=== PATIENT | female | born 1965 | race Caucasian/White ===

== ENCOUNTER → 2017-06-01 | Outpatient (CLI) | payer BC ==
--- NOTE | 2017-06-01 17:01 | RADIOLOGY REPORT PS360 ---
US PELVIS-TRANSVAGINAL ONLY HISTORY: Dysfunctional uterine bleeding DUB ORDERING PHYSICIAN: Alverto Munoz MD PATIENT AGE: 51 years COMPARISON: None FINDINGS: The uterus is 8.6 x 4 x 5.8 cm with a combined endometrial thickness of 9 mm. No uterine mass. The left ovary is 2 x 1.3 cm. The right ovary is 4.6 x 3.2 cm and contains a 4 x 2.8 cm cyst. No cul-de-sac fluid. There are bilateral ovarian blood flow. IMPRESSION: 4 cm right ovarian cyst Endometrial thickness of the limits of normal
== END ==
LOC: RAD 05-28 15:00
DX: N93.8 Other specified abnormal uterine and vaginal bleeding (principal)